=== PATIENT | male | born 1980 | race Caucasian/White ===

== ENCOUNTER → 2018-01-19 | Outpatient (CLI) | payer OTHER ==
--- NOTE | 2018-01-19 10:16 | US ---
EXAMINATION TYPE: US abdomen complete DATE OF EXAM: 01/19/2018 COMPARISON: NONE CLINICAL HISTORY: R10.11 Right Upper Quad Pain. Patient stated has RUQ pressure x 3 months. EXAM MEASUREMENTS: Liver Length: 20.8 cm Gallbladder Wall: 0.2 cm CBD: 0.3 cm Spleen: 11.3 cm Right Kidney: 11.3 x 6.0 x 5.1 cm Left Kidney: 12.3 x 6.6 x 7.0 cm Pancreas: Liver: hyperechoic with slight diminished visualization of the portal triads. This most commonly rel ates to hepatic steatosis. This limits evaluation for underlying hepatic masses. Gallbladder: wnl Evidence for sonographic Fernandez's sign: No CBD: wnl Spleen: wnl Right Kidney: wnl Left Kidney: wnl Upper IVC: wnl Abd Aorta: wnl The intrahepatic portion of the IVC and proximal abdominal aorta are within normal limits. There i s no evidence of cholelithiasis. Common bile duct is unremarkable. The visualized portions of the p ancreas are homogenous. The spleen is unremarkable. Kidneys are symmetric and free of hydronephrosi s. No renal lesions are seen. IMPRESSION: 1. Mild increased echogenicity of the hepatic parenchyma most commonly relating to mild hepatic steat osis. 2. No sonographic evidence of cholelithiasis or acute cholecystitis.
== END | disposition home or self-care (01) ==
LOC: RADUSWWP 08:55
PROVIDERS: ATTEND Family Medicine
DX: R93.2 Abnormal findings on diagnostic imaging of liver and biliary tract (principal); R10.11 Right upper quadrant pain
CPT/HCPCS: 76700

== ENCOUNTER 2018-05-04 07:37 | Day surgery (SDC) | payer OTHER ==
[2018-04-30 09:06] VITALS: BMI 36.6
[~2018-05-04 07:37] MED LIST: LACTATED RINGERS 1,000 ML IV SCH; LIDOCAINE 1% 20 ML VIAL (10MG/ML) FOR IV START INTRADERMA PRN
[2018-05-04 07:49] VITALS: RESP 16; TEMP 98.2
[2018-05-04] MEDS ORDERED: MIDAZOLAM 2 MG/2 ML VIAL ONE (09:05)
[2018-05-04] MEDS ORDERED: PROPOFOL 10 MG/ML 20 ML VIAL IV ONE (09:05)
[2018-05-04] MEDS ORDERED: fentaNYL (PF) 50 MCG/ML 2 ML AMP ONE (09:05)
[2018-05-04] MEDS ORDERED: LIDOCAINE 1% INJ 10MG/ML (20 ML MDV) ONE (09:05)
--- NOTE | 2018-05-04 09:36 | P.PCN ---
Date of Procedure: 05/04/18 Procedure(s) Performed: Procedure: Colonoscopy and biopsy. Preoperative diagnosis: Intermittent rectal bleeding. Postoperative diagnosis: 1. Low-grade internal hemorrhoids not bleeding at the time of this exam most likely cause of bleeding. 2. Diminutive polyp in the distal sigmoid biopsied but no large polyps or cancer. Preparation: HalfLytely prep. Sedation: Was provided by anesthesia. Brief clinical history: The patient is a 38-year-old male who I have evaluated in the office last month regarding intermittent rectal bleeding for several years. There is history of colon cancer in his maternal grandparent. I scheduled this evaluation to rule out with confidence neoplasia or other pathology. Procedure: With the patient on his left lateral decubitus position and after informed consent and adequate sedation, the perianal area was inspected and it did not show any fissures or fistulas. There were no masses felt on digital rectal examination. The Olympus CFQ 160L video colonoscope was then inserted in the rectum in the usual fashion and advanced to the cecum. The preparation was less than ideal on the right side and cecum with thick sticky secretions and fecal debris noted. There were no obvious large polyps or tumors seen. A diminutive polyp in the distal sigmoid was noted which was biopsied but there were no large polyps or cancer. I retroflexed the endoscope in the rectum before the endoscope was withdrawn. Low-grade internal hemorrhoids were noted but there was no evidence of bleeding. The patient tolerated the procedure well. Plan: The patient was reassured. Discussed dietary measures and local care for hemorrhoids. With his family history and finding of the polyp today, I recommended repeat exam in 5 years. He will follow up with you as planned.
[2018-05-04 09:50] VITALS: BP 111/74; PULSE 60
== END 2018-05-04 10:02 | disposition home or self-care (01) ==
LOC: ORWHC2ENDO 07:37
DX: Z85.038 Personal history of other malignant neoplasm of large intestine (principal); D12.5 Benign neoplasm of sigmoid colon; K64.8 Other hemorrhoids; F17.210 Nicotine dependence, cigarettes, uncomplicated; Z79.899 Other long term (current) drug therapy
CPT/HCPCS: 88305; 45380; J2250; J2001; J3010; J2704